=== PATIENT | female | born 1940 | race Caucasian/White ===

== ENCOUNTER 2022-03-22 12:27 | Outpatient (CLI) | payer MEDICARE, BC | END 2022-03-22 12:28 | disposition home or self-care (01) | LOC: CSHCP 12:27 | PROVIDERS: ATTEND Internal Medicine | DX: J44.9 Chronic obstructive pulmonary disease, unspecified (principal); R06.00 Dyspnea, unspecified | CPT/HCPCS: 94060; 94726; 94729; 94760 ==